=== PATIENT | female | born 1960 | race Caucasian/White ===

== ENCOUNTER 2016-04-23 11:15 | Outpatient (RCR) | payer BC | END 2016-06-03 | disposition home or self-care (01) | LOC: PT 11:15 | PROVIDERS: ATTEND Family Medicine | DX: I89.0 Lymphedema, not elsewhere classified (principal) ==

== ENCOUNTER → 2016-06-25 | Outpatient (CLI) | payer BC | LOC: RAD 07:28 | PROVIDERS: ATTEND Family Medicine | DX: Z12.31 Encounter for screening mammogram for malignant neoplasm of breast (principal) ==

== ENCOUNTER → 2016-07-15 | Outpatient (CLI) | payer BC | LOC: RAD 12:50 | PROVIDERS: ATTEND Family Medicine | DX: R92.2 Inconclusive mammogram (principal) ==

== ENCOUNTER → 2016-09-10 | Outpatient (CLI) | payer BC ==
[~2016-09-10] MED LIST: CALC600T12 PO; HCT25T PO; IRBE150T24 PO; LEVO750T39 PO; MULT-63 PO; WARF5TAB
[2016-09-10 12:50] LABS: D-DIMER* < 215 ng/mL (0-500)
== END ==
LOC: LAB 11:56
PROVIDERS: ATTEND Family Medicine
DX: D68.9 Coagulation defect, unspecified (principal); M79.89 Other specified soft tissue disorders; Z86.718 Personal history of other venous thrombosis and embolism
CPT/HCPCS: 36415; 85379; 85610